=== PATIENT | male | born 1955 | race Caucasian/White ===

== ENCOUNTER 2016-11-25 14:32 | Emergency (ER) | payer OTHER ==
[2016-11-25] MEDS ORDERED: oxyCOD/ACETAMIN 5 MG/325 MG TABLET PO STA (14:56)
[2016-11-25] MEDS ORDERED: oxyCOD/ACETAMIN 5 MG/325 MG TABLET PO ONE (15:02)
== END 2016-11-25 16:17 | disposition home or self-care (01) ==
DX: S60.221A Contusion of right hand, initial encounter (principal); W22.8XXA Striking against or struck by other objects, initial encounter; F17.200 Nicotine dependence, unspecified, uncomplicated; R03.0 Elevated blood-pressure reading, without diagnosis of hypertension
CPT/HCPCS: 29125; 73130; 99283; A9270

== ENCOUNTER 2016-12-05 | Outpatient (CLI) | payer OTHER | END 2016-12-05 20:51 | disposition critical access hospital (66) | CPT/HCPCS: A0425; A0427 ==

== ENCOUNTER 2016-12-05 21:13 | Emergency (ER) | payer OTHER ==
[2016-12-05] MEDS ORDERED: oxyCOD/ACETAMIN 5 MG/325 MG TABLET PO STA (21:21)
[2016-12-05] MEDS ORDERED: oxyCOD/ACETAMIN 5 MG/325 MG TABLET PO ONE (21:24)
== END 2016-12-05 22:52 | disposition home or self-care (01) ==
DX: S19.9XXA Unspecified injury of neck, initial encounter (principal); S06.9X9A Unspecified intracranial injury with loss of consciousness of unspecified duration, initial encounter; W08.XXXA Fall from other furniture, initial encounter; R03.0 Elevated blood-pressure reading, without diagnosis of hypertension; Z98.1 Arthrodesis status; F17.200 Nicotine dependence, unspecified, uncomplicated
CPT/HCPCS: 70450; 72125; 99283; 99284; A9270